=== PATIENT | female | born 1970 | race Caucasian/White ===

== ENCOUNTER → 2016-09-29 | Outpatient (CLI) | payer BC, OTHER ==
[2016-09-29 12:30] LABS: BLOOD UREA NITROGEN 12 mg/dl (7-18); BUN/CREATININE RATIO 12.6 (10-20); CALCIUM 8.5 mg/dl (8.5-10.1); CARBON DIOXIDE 24 mmol/L (21-32); CHLORIDE 110 mmol/L (98-107); CREATININE 0.93 mg/dl (0.60-1.20); GLUCOSE 83 mg/dl (70-99); POTASSIUM 3.9 mmol/L (3.5-5.1); SODIUM 142 mmol/L (136-145)
== END | disposition home or self-care (01) ==
LOC: C.LAB1850 11:05
PROVIDERS: ATTEND Internal Medicine
DX: E03.9 Hypothyroidism, unspecified (principal); R10.9 Unspecified abdominal pain

== ENCOUNTER → 2016-12-02 | Outpatient (CLI) | payer OTHER ==
--- NOTE | 2016-12-05 15:14 | MAMMOGRAPHY REPORT ---
BILATERAL DIGITAL SCREENING MAMMOGRAM TOMOSYNTHESIS WITH CAD: 12/02/2016 TECHNIQUE: Breast tomosynthesis in addition to standard 2D mammography was performed. Current study was also evaluated with a Computer Aided Detection (CAD) system. COMPARISON: Comparison is made to exams dated: 11/27/2015 mammogram, 11/21/2014 mammogram, 11/15/2013 ma mmogram, 11/12/2012 mammogram, 11/02/2011 mammogram, and 05/17/2011 mammogram - [facility] enter. BREAST COMPOSITION: The tissue of both breasts is heterogeneously dense, which may obscure small ma sses. FINDINGS: There are possible grouped calcifications seen within the left upper outer quadrant, for which spot magnification views are recommended for further evaluation. The remainder of both breasts are stable compared to prior exams, without suspicious masses, calcifi cations, or areas of architectural distortion noted. A 6 mm asymmetry seen within the right retroar eolar breast middle depth on the cc view is similar to prior exams including the 2010 and 2008 exams , and considered benign given long-term stability. IMPRESSION: ACR BI-RADS CATEGORY 0: INCOMPLETE EVALUATION: NEED ADDITIONAL IMAGING EVALUATION Possible left upper outer quadrant calcifications, for which additional imaging evaluation is recomm ended. The patient will be called to schedule an appointment. Approximately 10% of breast cancers are not detected with mammography. A negative mammographic repor t should not delay biopsy if a clinically suggestive mass is present. Aimee Fair M.D. /:12/03/2016 12:36:38 Network Security Consultant: Shira BRADLEY)(Susan), [facility] letter sent: Addl Imaging 0 BI-RADS Code: ACR BI-RADS Category 0: Incomplete Evaluation: Need Additional Imaging Evaluation
== END | disposition home or self-care (01) ==
LOC: C.MAMM 08:37
PROVIDERS: ATTEND Obstetrics & Gynecology
DX: Z12.31 Encounter for screening mammogram for malignant neoplasm of breast (principal)

== ENCOUNTER → 2016-12-14 | Outpatient (CLI) | payer OTHER ==
--- NOTE | 2016-12-14 14:35 | MAMMOGRAPHY REPORT ---
UNILATERAL LEFT DIGITAL DIAGNOSTIC MAMMOGRAM: 12/14/2016 CLINICAL HISTORY: 46-year-old woman called back from screening mammography for possible clustered mi crocalcifications in the left breast. Family history of breast cancer = mother in her early 50s, an d a few other second and third degree maternal and paternal relatives. TECHNIQUE: Spot magnification left CC and ML views were obtained. COMPARISON: Comparison is made to exams dated: 12/02/2016 mammogram, 11/27/2015 mammogram, 11/21/2014 ma mmogram, 11/15/2013 mammogram, 11/12/2012 mammogram, and 05/17/2011 mammogram - [facility] enter. BREAST COMPOSITION: The tissue of the left breast is heterogeneously dense, which may obscure small masses. FINDINGS: Spot magnification views of the left upper outer quadrant demonstrate a tiny grouping of a pproximately 3 punctate microcalcifications measuring 1.1 mm in diameter, in the upper outer middle one third of the breast. No obvious associated mass, asymmetry or architectural distortion. When c omparing to prior available mammograms, these are increasingly conspicuous comparing to the prior ex ams, but have a benign morphology. A short interval follow-up left mammogram including repeat spot magnification views is recommended to ensure stability in 6 months, given the interval development. IMPRESSION: ACR-BI-RADS CATEGORY 3: PROBABLY BENIGN 1. There is a tiny grouping of 3 punctate monomorphic microcalcifications in the left upper outer q uadrant, not clearly seen on prior mammograms to ensure stability. A short interval follow-up diagn ostic left mammogram including spot magnification views is recommended to ensure stability in 6 cecilio hs. 2. The patient is considering genetic testing for breast cancer, given her strong family history. Pending genetic testing results, if the patient's lifetime risk for developing breast cancer is at l east 20%, she would also be a candidate for screening breast MRI. These results and recommendations were discussed with the patient and her at the time of the exam. She tentatively scheduled a follow-up appointment prior to leaving our department. Approximately 10% of breast cancers are not detected with mammography. A negative mammographic repor t should not delay biopsy if a clinically suggestive mass is present. Chely Yousif M.D. ay/:12/14/2016 12:28:26 Oven Loader: Nori BUCKNER(R)(M), [facility] letter sent: Follow Up Recommended 3 BI-RADS Code: ACR-BI-RADS Category 3: Probably Benign
== END | disposition home or self-care (01) ==
LOC: C.MAMM 11:13
PROVIDERS: ATTEND Obstetrics & Gynecology
DX: R92.2 Inconclusive mammogram (principal); R92.1 Mammographic calcification found on diagnostic imaging of breast

== ENCOUNTER → 2017-01-04 | Outpatient (CLI) | payer OTHER | END | disposition home or self-care (01) | LOC: C.LAB 08:35 | PROVIDERS: ATTEND Obstetrics & Gynecology | DX: Z80.3 Family history of malignant neoplasm of breast (principal) ==

== ENCOUNTER → 2017-03-02 | Outpatient (CLI) | payer OTHER ==
[2017-03-06 16:38] LABS: IGA SERUM 156 mg/dL (81-463); TIS TRANS IGA 1 U/mL (<4)
== END | disposition home or self-care (01) ==
LOC: C.LAB1850 12:46
PROVIDERS: ATTEND Physician Assistant
DX: R19.7 Diarrhea, unspecified (principal)

== ENCOUNTER → 2017-04-06 | Outpatient (CLI) | payer OTHER ==
[2017-04-06 16:36] LABS: THYROID STIMULATING HORMONE 1.37 uIu/ml (0.300-4.500)
== END | disposition home or self-care (01) ==
LOC: C.LAB1850 14:53
PROVIDERS: ATTEND Internal Medicine
DX: E03.9 Hypothyroidism, unspecified (principal)

== ENCOUNTER → 2017-06-19 | Outpatient (CLI) | payer OTHER ==
--- NOTE | 2017-06-19 14:55 | MAMMOGRAPHY REPORT ---
UNILATERAL LEFT DIGITAL DIAGNOSTIC MAMMOGRAM TOMOSYNTHESIS WITH CAD AND TARGETED LEFT ULTRASOUND: CLINICAL HISTORY: 47-year-old woman with a strong family history of breast cancer presents for follow -up in the left breast with particular attention to a small grouping of approximately 3 punctate micr ocalcifications in the upper outer quadrant. TECHNIQUE: Left CC and MLO 2-D and tomosynthesis images, spot magnification left CC and ML views were obtained. Current study was also evaluated with a Computer Aided Detection (CAD) system. The patient reported she was tested for BRCA1 and BRCA2 genes and tested negative. COMPARISON: Comparison is made to exams dated: 12/02/2016 mammogram, 11/27/2015 mammogram, 11/21/2014 shorty mogram, 11/15/2013 mammogram, and 11/12/2012 mammogram - [facility]. BREAST COMPOSITION: The tissue of the left breast is heterogeneously dense, which may obscure small masses. FINDINGS: The tomosynthesis full field views of the left breast demonstrated possible area of archite ctural distortion in the upper outer middle one third of the breast, not definitely seen on prior exa ms and best identified on the MLO tomosynthesis slice 26/85 and cc tomosynthesis slice 33/82. Furthe r evaluation with ultrasound was performed. On the spot magnification views of the left breast again noted are approximately 3 punctate microcalcifications in a small grouping in the upper outer middle one third of the breast. These have not significantly changed comparing to the spot magnification v iews obtained on 12/14/2016 they are increased in conspicuity versus new comparing to other prior shorty mograms. A few other scattered and loose the grouped punctate microcalcifications are also seen thro ughout the remainder of the left breast on the full field views. No other new suspicious masses, asy mmetries or calcifications are identified in the left breast. Targeted ultrasound was performed in the left upper outer quadrant. There is an oval parallel circum scribed hypoechoic solid mass in the 2:00 axis, 4 cm from the nipple, measuring 6.1 x 3.0 x 6.9 mm. There are ill-defined areas of shadowing in the 2:30 left breast, 6 cm from the nipple, and also in t he 3:00 breast, 7 cm from the nipple. The area of shadowing in the 3:00 left breast may also have as sociated very subtle architectural distortion, but this is not definitive. Further characterization with a breast MRI is recommended to assess for the possibility of a subtle enhancing mass in this are a. Pending MRI results, ultrasound-guided core biopsy of the solid benign-appearing mass in the 2:00 left breast, 4 cm from the nipple may also be needed. IMPRESSION: ACR BI-RADS CATEGORY 0: INCOMPLETE EVALUATION: NEED ADDITIONAL IMAGING EVALUATION, TARG ETED ULTRASOUND ACR BI-RADS CATEGORY 0: INCOMPLETE EVALUATION: NEED ADDITIONAL IMAGING EVALUATION 1. Stable loose grouping of approximately 3 punctate microcalcifications in the left upper outer rebeca drant. These microcalcifications are unchanged dating back to November 2016 and could represent benign fibrocystic change. However, another short interval follow-up left diagnostic mammogram including sp ot magnification views is recommended to ensure longer stability. 2. A possible very subtle area of architectural distortion was identified in the left upper outer qu adrant on the current tomosynthesis images with ill-defined areas of shadowing seen on ultrasound in the 2:30 and 3:00 axes, one of which may correlate with the possible mammographic distortion. Khurram r, given the subtle nature of these findings, definitive characterization with a contrast-enhanced br east MRI is recommended to exclude the possibility of a subtle enhancing mass or infiltrative process , particularly given the strong family history of breast cancer and personal history of dense breasts . 3. An oval parallel circumscribed benign-appearing solid mass was incidentally identified in the 2:0 0 left breast on ultrasound. Although this most likely represents a benign fibroadenoma, definitive characterization with tissue sampling may ultimately be needed. This can also be assessed on breast MRI. These results and recommendations were discussed with the patient at the time of the exam. Approximately 10% of breast cancers are not detected with mammography. A negative mammographic report should not delay biopsy if a clinically suggestive mass is present. Chely Yousif M.D. ay/:06/19/2017 09:55:10 Host Hostess: Nori Rawls, [facility] letter sent: Addl Imaging 0 BI-RADS Code: ACR BI-RADS Category 0: Incomplete Evaluation: Need Additional Imaging Evaluation Ult rasound BI-RADS: ACR BI-RADS Category 0: Incomplete Evaluation: Need Additional Imaging Evaluation
== END | disposition home or self-care (01) ==
LOC: C.MAMM 08:23
PROVIDERS: ATTEND Obstetrics & Gynecology
DX: R92.0 Mammographic microcalcification found on diagnostic imaging of breast (principal); Z80.3 Family history of malignant neoplasm of breast; N63.20 Unspecified lump in the left breast, unspecified quadrant

== ENCOUNTER → 2017-07-03 | Outpatient (CLI) | payer OTHER ==
[~2017-07-03] MED LIST: GADAVIST IV PRN
--- NOTE | 2017-07-04 07:43 | MAMMOGRAPHY REPORT ---
BREAST MRI OF BOTH BREASTS : 07/03/2017 CLINICAL HISTORY: Possible area of architectural distortion identified on tomosynthesis mammogram sravanthi ges, without definite sonographic correlate and unclear if this represents true distortion or overlap ping fibrolinear markings. Family history of breast cancer. COMPARISON: Comparison is made to exams dated: 11/15/2013 mammogram, 11/21/2014 mammogram, 11/27/2015 shorty mogram, 12/02/2016 mammogram, 12/14/2016 mammogram, and 06/19/2017 ultrasound - [facility] enter. TECHNIQUE: Using a 1.5 Patria magnet and dedicated breast coil, multisequence axial images were obtain ed through the breasts. After uneventful IV administration of 7.5 mL of Gadavist, dynamic multiphase contrast-enhanced axial images, and sagittal postcontrast were obtained. Temporal subtraction axial images and 3-D MIP images are provided. Everything was then reviewed on a 3-D workstation, [employer]. FINDINGS: Right breast: There is minimal background parenchymal enhancement. No suspicious enhancing mass, non -mass enhancement, suspicious kinetics or area of architectural distortion is seen in the right breas t. No focal skin thickening or nipple retraction. The retromammary fat is intact. No suspicious ri ght axillary lymphadenopathy. Left breast: There is mild background parenchymal enhancement of the left breast. There are tiny rou nd and oval foci of enhancement throughout the left breast, most numerous laterally and in the left u pper outer quadrant as seen on page 53/124. Although this could represent benign fibrocystic change or normal background enhancement, it is asymmetric compared to the right breast. There is an enhanci ng mass in the 6:00 middle one third of the left breast measuring 5.4 x 6.5 x 4.4 mm, with associated persistent kinetics and irregular versus spiculated borders on the axial images (axial page 102/124 and sagittal page 37/136). There is a suggestion of internal nonenhancing septa and this lesion is T 2 isointense. Differential considerations include fibroadenoma and malignancy. Definitive character ization with second look ultrasound and possible ultrasound-guided core biopsy is recommended. If th is area is not identified on ultrasound, MRI guided biopsy is recommended. The area of questionable architectural distortion in the upper outer quadrant of the left breast is thought to be seen on the sagittal images (page 23/136). This is thought to represent the normal tissue pattern as there is no associated abnormal enhancement in the area of suggested distortion. No associated enhancing mass o r non-mass enhancement. There is no focal skin thickening or nipple retraction of the left breast. No suspicious left axillary lymphadenopathy. The retromammary fat is intact. IMPRESSION: ACR BI-RADS CATEGORY 4: SUSPICIOUS 1. The area of questionable architectural distortion in the left upper outer quadrant is thought to represent normal fibrolinear markings, as this area is thought to be identified on the sagittal image and has no associated mass or non-mass enhancement. This finding is considered benign. 2. However, there is an irregular versus spiculated 6.5 mm enhancing mass in the inferior 6:00 left breast for which targeted second look ultrasound and possible ultrasound-guided core biopsy is recomm ended (45 minutes). If second look ultrasound is unyielding, MRI guided left breast biopsy is recomm ended. 3. There are numerous foci of enhancement in the left breast, most numerous in the upper outer quadr ant, asymmetric comparing to the right breast. Although the enhancing foci could represent normal ba ckground enhancement or possibly fibrocystic changes, sometimes DCIS could appear similar. Further m anagement regarding these foci of enhancement will be made after further workup of the 6.5 mm mass in the 5:30 to 6:00 left breast. 4. No MRI evidence of malignancy in the right breast. 5. No suspicious axillary lymphadenopathy identified. The patient will be called to schedule an appointment. Chely Yousif M.D. ay/:07/03/2017 17:51:35 Parts Salesperson: electric blasting cap assembler, [facility] letter sent: Abnormal 4/5 BI-RADS Code: ACR BI-RADS Category 4: Suspicious
== END | disposition home or self-care (01) ==
LOC: C.MRI 14:00
PROVIDERS: ATTEND Obstetrics & Gynecology
DX: R92.8 Other abnormal and inconclusive findings on diagnostic imaging of breast (principal); R92.2 Inconclusive mammogram; N63.20 Unspecified lump in the left breast, unspecified quadrant

== ENCOUNTER → 2017-07-10 | Outpatient (CLI) | payer OTHER ==
--- NOTE | 2017-07-10 11:48 | Discharge Instructions ---
Discharge Instructions Procedure Procedure Date: Jul 10, 2017. Reason for visit: 2ND Look Us Poss Bx Left Mass. Discharge Discharge Date: Jul 10, 2017. Discharge Diagnosis: status post breast biopsy Instructions Activity Recommendations: Additional Limitations (see below) Return to School/Work: no limitations Recommended Home Diet: No Limitations Provider Instructions: ACTIVITY RECOMMENDATIONS: * No lifting, pushing, pulling or exercising the affected side for three days. RETURN TO SCHOOL/WORK: * You may return to work/school after the procedure, but do not perform any strenuous activities for 24 to 48 hours. MEDICATIONS: * Tylenol (two 325 mg) every four to six hours if needed for mild pain (if not allergic to Tylenol). DIET: * Resume previous diet. SPECIAL CARE INSTRUCTIONS: * Keep biopsy site dry for 24 hours. May shower after 24 hours, but do not soak (bathe) incision. * May remove Tegaderm (plastic patch) tomorrow AFTER showering. * Leave the steri-strips on for one week. Allow the steri-strips to fall off by themselves. If not off after one week, you may remove them. You may place a Bandaid crosswise over the strips, if desired. * Apply ice 10 minutes on and 10 minutes off as needed. * Wear a bra at bedtime to sleep more comfortably for 2-3 days. * Your referring physician should have the results after approximately 5 to 7 business days. * Call for unusual bleeding, fever, drainage, etc or if you have any questions call during normal business hours or after hours call Dr Fair, [phone]. FOLLOW UP VISIT: Follow-up with Referring Physician as scheduled. Allergies Coded Allergies: Hydrocodone (Verified Allergy, Unknown, 09/25/09) Tramadol (Verified Allergy, Unknown, 09/25/09) Aria Dougherty Recommendations: Call your doctor if: * Temperature above 101 degrees * Pain not relieved by pain medicine ordered * There is increased drainage or redness from any incision * You have any unanswered questions or concerns. Your Doctors Instructions noted above were prepared by provider Aimee Fair. Patient Signature Section: Patient Instructions Signature Page Amie Cramer Patient (or Guardian) Signature/Date: I have read and understand the instructions given to me by my caregivers. Caregiver/RN/Doctor Signature/Date: The above-named patient and/or guardian has received patient instructions on this date. + Original Patient Signature Page (only) stays with chart. Please make copy for patient.
--- NOTE | 2017-07-10 14:45 | MAMMOGRAPHY REPORT ---
ULTRASOUND GUIDED BIOPSY LEFT BREAST: 07/10/2017 CLINICAL HISTORY: Left 6:00 breast mass. PATIENT CONSENT: The procedure, risks and benefits were discussed with the patient and informed writt en consent was obtained. A timeout was performed immediately prior to the procedure. PROCEDURE DESCRIPTION: With ultrasound guidance, aseptic technique, and lidocaine as the local anesth etic (1% lidocaine to anesthetize the skin and 1% lidocaine with epinephrine to anesthetize the deepe r tissues), the mass of concern in the left 6:00 breast was sampled 5 times with a 14-gauge Achieve b iopsy needle. Immediately thereafter, with ultrasound guidance, aseptic technique, and lidocaine as the local anesthetic, a metallic localizer clip was placed at the biopsy site. Direct pressure was a pplied to the site immediately post procedure and hemostasis was achieved. Postprocedure unilateral mammograms were performed to confirm clip placement. The patient tolerated the procedure without com plication. She was given wound care instructions. The specimens were sent to pathology for analysis. COMPARISON: Comparison is made to exams dated: 07/10/2017 ultrasound, 07/03/2017 breast MRI, 017 mammogram, 06/19/2017 ultrasound, and 12/14/2016 mammogram - [facility]. IMPRESSION: ULTRASOUND GUIDED BIOPSY Ultrasound guided core needle biopsy of the left 6:00 breast mass, with clip placement. Aimee Fair M.D. ah/:07/10/2017 11:55:23 Senior Manager: Elizabet BUCKNER(R)(M), [facility]
--- NOTE | 2017-07-10 14:47 | MAMMOGRAPHY REPORT ---
SECONDLOOK ULTRASOUND OF LEFT BREAST: 07/10/2017 CLINICAL HISTORY: Enhancing mass seen within the left 6:00 breast on recent breast MRI, for which sec ond look ultrasound was recommended. COMPARISON: Comparison is made to exams dated: 06/19/2017 mammogram, 06/19/2017 ultrasound, 7 mammogram, 07/03/2017 breast MRI, 12/02/2016 mammogram, and 11/27/2015 mammogram - [facility]. TECHNIQUE: Real-time targeted ultrasound of the left breast was performed. FINDINGS: Real-time, high resolution targeted ultrasound was performed of the left 6:00 breast in th e region of the enhancing mass seen on recent breast MRI. In the left breast at 6:00, approximately 2 cm from the nipple, there is an irregular hypoechoic mass which measures 6 x 5 x 5 mm. This is sim ilar in size and location to the enhancing mass seen on breast MRI, and likely corresponds with the e nhancing mass. The mass is indeterminate and ultrasound guided core needle biopsy is recommended for further evaluation. IMPRESSION: ACR BI-RADS CATEGORY 4: SUSPICIOUS - FOLLOW-UP RECOMMENDED Hypoechoic irregular 6 m mass in the left 6:00 breast on ultrasound, which likely corresponds with th e enhancing mass seen on recent breast MRI. The mass is indeterminate and ultrasound-guided core nee dle biopsy is recommended for further evaluation. The patient was verbally notified of the results. Biopsy was performed immediately after the ultraso und exam. Aimee Fair M.D. /:07/10/2017 11:52:32 Fish And Wildlife Biologist: Elizabet BUCKNER(Willy)(Susan), [facility] BI-RADS Code: ACR BI-RADS Category 4: Suspicious
--- NOTE | 2017-07-10 14:47 | MAMMOGRAPHY REPORT ---
UNILATERAL LEFT DIGITAL DIAGNOSTIC MAMMOGRAM TOMOSYNTHESIS: 07/10/2017 CLINICAL HISTORY: Status post left breast biopsy. TECHNIQUE: Breast tomosynthesis in addition to standard 2D mammography was performed. Postprocedura l left CC and ML tomosynthesis images including C views were obtained. COMPARISON: Comparison is made to exams dated: 07/03/2017 breast MRI, 06/19/2017 mammogram, 06/19/20 17 ultrasound, and 12/14/2016 mammogram - [facility]. BREAST COMPOSITION: The tissue of the left breast is heterogeneously dense, which may obscure small masses. FINDINGS: A new ribbon-shaped biopsy marker clip is seen at the site of the biopsied mass in the lef t breast at approximately 6:00. No significant postbiopsy hematoma is seen. IMPRESSION: POST PROCEDURE IMAGING FOR MARKER PLACEMENT New biopsy marker clip status post ultrasound guided biopsy of the left 6:00 breast mass. Pathology results are pending. Approximately 10% of breast cancers are not detected with mammography. A negative mammographic report should not delay biopsy if a clinically suggestive mass is present. Aimee Fair M.D. ah/:07/10/2017 12:06:56 Hammer Adjuster: Elizabet Patino RT(R)(M), [facility] BI-RADS Code: Post Procedure Imaging For Marker Placement
== END | disposition home or self-care (01) ==
LOC: C.MAMM 10:46
PROVIDERS: ATTEND Obstetrics & Gynecology
DX: N63.20 Unspecified lump in the left breast, unspecified quadrant (principal); C50.912 Malignant neoplasm of unspecified site of left female breast

== ENCOUNTER → 2017-08-03 | Outpatient (CLI) | payer OTHER ==
--- NOTE | 2017-08-03 14:40 | DIAGNOSTIC IMAGING REPORT ---
LYMPH SENTINEL NODE ID CLINICAL HISTORY: 47 years-old Female presenting with LEFT BREAST CA. COMPARISON: 07/10/2017. PROCEDURE: Using standard sterile technique, 4 intradermal and one deep injection of 0.555 mCi of Lymphoseek was placed in the left breast. The patient tolerated the procedure well. There were no immediate complications. The patient was subsequently transported to the surgical suite. No imaging was obtained at the referring physician's request. IMPRESSION: Injection of 0.555 mCi of Lymphoseek in the left breast. Electronically signed by: Francisco Javier Norwood M.D. 08/03/2017 2:39 PM Dictated Date/Time: 08/03/2017 2:36 PM
== END | disposition home or self-care (01) ==
LOC: C.NUCL 13:32
PROVIDERS: ATTEND Surgery
DX: C50.912 Malignant neoplasm of unspecified site of left female breast (principal)

== ENCOUNTER → 2017-09-28 | Outpatient (CLI) | payer OTHER ==
[2017-09-28 09:43] LABS: HEMATOCRIT 40.8 % (37-47); HEMOGLOBIN 13.7 g/dL (12.0-16.0); MEAN CELL VOLUME 96.2 fL (80-100); MEAN CORPUSCULAR HEMOGLOBIN 32.3 pg (25-34); MEAN CORPUSCULAR HGB CONC 33.6 g/dl (32-36); MEAN PLATELET VOLUME 11.6 fL (7.4-10.4); PLATELET COUNT 170 K/uL (130-400); RED CELL DISTRIBUTION WIDTH CV 12.6 % (11.5-14.5); RED CELL DISTRIBUTION WIDTH SD 43.5 fL (36.4-46.3)
[2017-09-28 10:04] LABS: BLOOD UREA NITROGEN 10 mg/dl (7-18); CARBON DIOXIDE 25 mmol/L (21-32); CHOLESTEROL 236 mg/dl (0-200); CREATININE 0.83 mg/dl (0.60-1.20); GLUCOSE 90 mg/dl (70-99); SODIUM 140 mmol/L (136-145)
[2017-09-28 10:15] LABS: LDL CHOLESTEROL CALCULATED 149 mg/dl
== END | disposition home or self-care (01) ==
LOC: C.LAB1850 07:42
PROVIDERS: ATTEND Nurse Practitioner Adult Health
DX: Z13.220 Encounter for screening for lipoid disorders (principal); I10 Essential (primary) hypertension; E78.5 Hyperlipidemia, unspecified; E03.9 Hypothyroidism, unspecified; N61.0 Mastitis without abscess

== ENCOUNTER → 2017-11-15 | Outpatient (CLI) | payer OTHER ==
[2017-11-15 10:23] LABS: FOLLICLE STIMULAT HORMONE 70.82 IU/L; LUTEINIZING HORMONE 39.64 IU/L
== END | disposition home or self-care (01) ==
LOC: C.LAB1850 08:47
PROVIDERS: ATTEND Nurse Practitioner Adult Health
DX: E03.9 Hypothyroidism, unspecified (principal); N95.9 Unspecified menopausal and perimenopausal disorder; N92.6 Irregular menstruation, unspecified

== ENCOUNTER → 2018-01-02 | Outpatient (CLI) | payer OTHER ==
--- NOTE | 2018-01-02 17:40 | DIAGNOSTIC IMAGING REPORT ---
(CHEST) THORAX WITHOUT CT DOSE: 753.44 mGycm CLINICAL HISTORY: 47 years-old Female with WITHOUT CONTRAST PER DUYEN AT DR.'S OFFICE (KF). Acute chest pain with concern for abscess of the chest wall. TECHNIQUE: Multiaxial CT images of the chest were performed without contrast. A dose lowering technique was utilized adhering to the principles of ALARA. COMPARISON: None. FINDINGS: No dominant thyroid nodule or pathologic adenopathy identified. Heart is normal in size without pericardial effusion or thoracic aortic aneurysm. Trace amount of pleural fluid is seen at the bilateral lung bases. There is no pneumothorax. Linear subsegmental bibasilar opacities suggest atelectasis/scarring. Central airways are patent. No acute process of the imaged upper abdomen. Bilateral saline breast augmentation devices are noted with moderate subcutaneous edema about the bilateral breasts. There is air within the bilateral augmentation implants with trace air and fluid also noted surrounding the bilateral capsules. Moderate subcutaneous edema with skin thickening of the bilateral breasts with scattered areas of subcutaneous emphysema. No drainable fluid collection. Radial folds of the breast implants are noted. No opaque foreign body identified. The bones appear intact. Mild spondylitic spurring about the spine. IMPRESSION: 1. Trace pleural effusions with linear subsegmental atelectasis/scarring. 2. Bilateral saline breast augmentation devices are present with mild amount of air and fluid surrounding the bilateral implants as well as trace air within the implant devices themselves. Moderate subcutaneous edema with skin thickening is also noted. These findings may reflect expected postsurgical changes with infectious etiology also within the differential. No drainable fluid collection. Electronically signed by: Yuri Douglas M.D. 01/02/2018 5:38 PM Dictated Date/Time: 01/02/2018 5:29 PM
[2018-01-02 17:55] LABS: BASO % 0.2 %; BASO ABS # 0.02 K/uL (0-0.2); EOS % 0.2 %; EOS ABS # 0.03 K/uL (0-0.5); HEMATOCRIT 39.4 % (37-47); HEMOGLOBIN 13.7 g/dL (12.0-16.0); IG# 0.04 K/uL (0.00-0.02); LYMPH % 10.8 %; LYMPH ABS # 1.43 K/uL (1.2-3.4); MEAN CELL VOLUME 92.7 fL (80-100); MEAN CORPUSCULAR HEMOGLOBIN 32.2 pg (25-34); MEAN CORPUSCULAR HGB CONC 34.8 g/dl (32-36); MEAN PLATELET VOLUME 11.5 fL (7.4-10.4); MONO % 6.9 %; MONO ABS # 0.91 K/uL (0.11-0.59); NEUT % 81.6 %; PLATELET COUNT 219 K/uL (130-400); RED CELL DISTRIBUTION WIDTH CV 12.5 % (11.5-14.5); RED CELL DISTRIBUTION WIDTH SD 42.3 fL (36.4-46.3); WHITE BLOOD COUNT 13.23 K/uL (4.8-10.8)
== END | disposition home or self-care (01) ==
LOC: C.CTS 15:56
PROVIDERS: ATTEND Surgery Plastic and Reconstructive Surgery
DX: R50.9 Fever, unspecified (principal); N64.59 Other signs and symptoms in breast

== ENCOUNTER → 2018-01-10 | Outpatient (CLI) | payer OTHER ==
[2018-01-10 16:58] LABS: BASO % 0.2 %; BASO ABS # 0.02 K/uL (0-0.2); EOS % 1.7 %; EOS ABS # 0.16 K/uL (0-0.5); HEMATOCRIT 38.3 % (37-47); HEMOGLOBIN 13.1 g/dL (12.0-16.0); IG# 0.06 K/uL (0.00-0.02); LYMPH % 26.6 %; LYMPH ABS # 2.45 K/uL (1.2-3.4); MEAN CELL VOLUME 91.4 fL (80-100); MEAN CORPUSCULAR HEMOGLOBIN 31.3 pg (25-34); MEAN PLATELET VOLUME 9.7 fL (7.4-10.4); MONO % 6.3 %; MONO ABS # 0.58 K/uL (0.11-0.59); NEUT % 64.5 %; NEUT ABS # 5.94 K/uL (1.4-6.5); PLATELET COUNT 366 K/uL (130-400); RED CELL DISTRIBUTION WIDTH CV 12.1 % (11.5-14.5); RED CELL DISTRIBUTION WIDTH SD 40.2 fL (36.4-46.3); WHITE BLOOD COUNT 9.21 K/uL (4.8-10.8)
[2018-01-10 17:03] LABS: MEAN CORPUSCULAR HGB CONC 34.2 g/dl (32-36)
== END | disposition home or self-care (01) ==
LOC: C.LAB1850 16:07
PROVIDERS: ATTEND Surgery Plastic and Reconstructive Surgery
DX: Z98.890 Other specified postprocedural states (principal)